=== PATIENT | female | born 1945 | race Caucasian/White ===

== ENCOUNTER 2016-07-06 14:11 | Inpatient (IN) | payer MEDICARE, OTHER ==
[~2016-07-06] VITALS: Ht 154.9 cm; Wt 101.8 kg
[~2016-07-06 14:11] MED LIST: ADVA100A INH; ATOR20TA15 PO; CENTTAB PO; COMMODE 3-IN-11 MIS; CPMMACHINE; ENOX40P SQ; NORC5TAB PO; PRIL20CA9 PO; WALKER WHEELS/F1 MIS
[2016-07-09] MEDS ORDERED: ASPI81TA11 PO (10:37)
[2016-07-09] MEDS ORDERED: FEXO1TAB97 PO (10:37)
[2016-07-25] MEDS ORDERED: fentaNYL CITRATE 250 MCG/5 ML AMP ONE ×2 (06:39→11:02)
[2016-07-25] MEDS ORDERED: ACETAMINOPHEN 1000 MG/100 ML VIAL IV ONE (06:39)
[2016-07-25] MEDS ORDERED: MIDAZOLAM HCL 2 MG/2 ML VIAL ONE (06:39)
--- NOTE | 2016-07-25 06:52 | HHI.DCPOC ---
Discharge Care Plan Diagnosis: (1) Primary localized osteoarthrosis, lower leg (2) Status post total knee replacement, left Your Health Problems Are: Difficulty with ADL Goals to Promote Your Health * To prevent worsening of your condition and complications * To maintain your health at the optimal level Directions to Meet Your Goals Take your medications as prescribed Follow your dietary instruction Follow activity as directed Keep your appointments as scheduled Take your immunizations and boosters as scheduled If your symptoms worsen call your PCP, if no PCP go to Urgent Care Center or Emergency Room Smoking is Dangerous to Your Health. Avoid second hand smoke Call the 24-hour hour crisis hotline for domestic abuse at Zachary Mckeon Jul 25, 2016 06:52
--- NOTE | 2016-07-25 06:53 | HHI.FF ---
Face to Face Verification Diagnosis: (1) Primary localized osteoarthrosis, lower leg (2) Status post total knee replacement, left Physical Therapy Gait training, Transfer training, bed to chair Knee: Total knee Left LE Weight Bearing: WB as tolerated Left LE Range of Motion: Active ROM Nursing Nursing: Jacob teaching, Dressing changes Dressing Changes: Daily dressing change I have seen patient [place] on 07/25/16. My clinical findings support the need for the requested home health care services because: Limited ability to care for self High risk of falls I certify that my clinical findings support that this patient is homebound because: Post-op weakness Unsteady gait/balance Zachary Mckeon Jul 25, 2016 06:53
[2016-07-25] MEDS ORDERED: COMMODE 3-IN-11 MIS (06:54)
[2016-07-25] MEDS ORDERED: WALKER WHEELS/F1 MIS (06:54)
[2016-07-25] MEDS ORDERED: CPMMACHINE (06:54)
[2016-07-25] MEDS ORDERED: DEXAMETHASONE SOD PHOS 20 MG/5 ML VIAL ONE (07:11)
[2016-07-25] MEDS ORDERED: VANCOMYCIN HCL 1000 MG VIAL ONE ×2 (07:17→07:40)
[2016-07-25] MEDS ORDERED: GENTAMICIN SULFATE 80 MG/2 ML VIAL ONE (07:17)
[2016-07-25] MEDS ORDERED: ceFAZolin 2 GM PREMIX 50 ML ONE (07:17)
[2016-07-25 07:28] VITALS: BP 158/83; PULSE 74; RESP 18; TEMP 97.8; O2SAT 98
[2016-07-25] MEDS ORDERED: SODIUM CHLOR 0.9% 250 ML INJ 250 ML ONE (07:40)
[2016-07-25] MEDS ORDERED: FAMOTIDINE 20 MG/2 ML VIAL ONE (08:26)
[2016-07-25] MEDS ORDERED: TRANEXAMIC ACID INJ 940 MG in SODIUM CHLORIDE 0.9% INJ 100 ML IV SCH ×2 (08:30→12:00)
[2016-07-25] MEDS ORDERED: POVIDONE IODINE 7.5% SCRUB 118 ML BOTTLE TOPICAL SCH (08:30)
[2016-07-25] MEDS ORDERED: VANCOMYCIN 1000 MG/NS 250 ML (for <70 kg) IV SCH ×2 (08:30)
[2016-07-25] MEDS ORDERED: ceFAZolin 2 GM PREMIX 50 ML IV SCH (08:30)
[2016-07-25] MEDS ORDERED: ROPIVACAINE PERI-ARTICULAR INJECTION. P-ARTICULR SCH ×5 (08:30)
[2016-07-25] MEDS ORDERED: BUPIVACAINE LIPOSOME PF 1.3% 20 ML VIAL ONE (09:41)
[2016-07-25] MEDS: SODIUM CHLOR 0.9% 1000 ML INJ 1,000 ML IV SCH ×3 (10:27→23:27)
[2016-07-25] MEDS ORDERED: SODIUM CHLORIDE 0.9% FLUSH 5 ML FLUSH IVF PRN (10:30)
[2016-07-25] MEDS ORDERED: Post-op Orders (for Pharmacy) MISC XX ONE (10:30)
[2016-07-25] MEDS ORDERED: MAGNESIUM HYDROXIDE SUSP 30 ML CUP PO PRN (10:30)
[2016-07-25] MEDS ORDERED: MORPHINE SULFATE 4 MG/ML INJ IV PUSH PRN (10:30)
[2016-07-25] MEDS ORDERED: ONDANSETRON HCL 4 MG/2 ML VIAL IVP PRN (10:30)
[2016-07-25] MEDS ORDERED: ALUMINUM/MAGNESIUM/SIMETH 30 ML CUP PO PRN (10:30)
[2016-07-25] MEDS ORDERED: ACETAMINOPHEN/HYDROcodone 325 MG/5 MG TAB PO PRN (10:30)
[2016-07-25] MEDS ORDERED: diphenhydrAMINE HCL 50 MG/ML VIAL IV PRN (10:30)
[2016-07-25] MEDS ORDERED: NALOXONE HCL 0.4 MG/ML AMP IV PRN (10:30)
[2016-07-25] MEDS ORDERED: BISACODYL 10 MG SUPP RECTAL PRN (10:30)
--- NOTE | 2016-07-25 10:30 | PD.OP ---
cc: Brice Crooks MD Operative Report Date of Surgery: Jul 25, 2016 Preoperative Diagnosis: Left knee severe osteoarthritis Postoperative Diagnosis: Same Procedure: Left total knee arthroplasty Anesthesia: Adductor canal block and general Surgeon: Brice Crooks Corporate Meeting Planner(s): HIRAM Juares The surgical procedure was assisted by my Advanced Registered Nurse Practitioner. My [employer] WEB[employer] COMMER[employer] DEVELOPER presence was necessary throughout this case for the manipulation and positioning of the surgical extremity. My [employer]ER[employer] DEVELOPER was assisting me throughout the duration of this procedure. The skill set of an Advance Registered Nurse Practitioner was medically necessary to complete this procedure. During the surgical case, the surgical coordinator was working at the back table and the Advance Registered Nurse Practitioner was directly assisting me. Operation and Findings: IMPLANTS: DePuy Attune: Patella: size 32. Femur, posterior stabilized size 6 narrow. Tibia, rotating platform size 5. Tibial insert, rotating platform, posterior stabilized size 6 mm thickness. ESTIMATED BLOOD LOSS: 150 cc TOURNIQUET TIME: 45 minutes at 250 mmHg pressure. JUSTIFICATION FOR PROCEDURE: The patient has end-stage osteoarthritis to the knee. There is an attached conservative measures pathway form in the chart that describes the nonoperative measures that were undertaken prior to consideration of surgical management. The patient understood the risks and benefits of surgical management. See my office notes for further details PROCEDURE: The patient was brought back to the operative theatre. Adequate anesthesia was obtained. The patient received intravenous vancomycin and Ancef. The lower extremity was prepped and draped in the usual sterile fashion.The leg was exsanguinated, the tourniquet was raised. A standard anterior incision was performed followed by medial parapatellar arthrotomy was performed. End-stage arthritis was identified. Osteotomy of the patella was performed. We drilled holes for the patella. We trialed the patella component. We placed an intramedullary guide into the distal femur. We ultimately resected 13 mm off of the distal femur in 5 degrees of valgus. The remnants of the ACL and PCL were resected. Osteotomy of the proximal tibia was performed, resecting 5 mm off of the medial side. This was done with 3 degrees of posterior slope using an extramedullary guide. The distal end of the guide was placed in the mid aspect of the ankle. The femur was sized, and four chamfer cuts were completed in 3 of external rotation. We then cut the central box in the distal femur to replace the PCL. We resected the remnants of the menisci and removed osteophytes off of the femur and tibia. We then trialed the knee. We punched the tibia for the keel, and then used standard technique to cement in components. Excess cement was removed. We trialed the knee again and the final polyethylene thickness was chosen to provide extension to 0 degrees, and flexion of 140 degrees to gravity. The ligaments were appropriately balanced. Lateral release was necessary to obtain excellent patellofemoral tracking. The tourniquet was released and adequate hemostasis was obtained. An intra- articular injection of a ropivacaine cocktail was injected. The posterior knee was inspected for excess cement, which was removed. The final polyethylene was put into position after thorough irrigation. We then closed deep fascia with a #2 Stratafix followed by skin with 2-0 Vicryl followed by aleida. Postop plan is to weight-bear as tolerated. DVT prophylaxis will be performed with Bladimir, ANNETTA landin, early mobilization, and Lovenox followed by aspirin. Brice Crooks MD Jul 25, 2016 10:30
[2016-07-25] MEDS ORDERED: ASPI325T PO (10:32)
[2016-07-25] MEDS ORDERED: ENOX40P SQ (10:32)
[2016-07-25] MEDS ORDERED: NORC5TAB PO (10:32)
[2016-07-25] MEDS ORDERED: DO NOT ADM ANY ANTICOAGULANT DRUGS PRN (10:55)
[2016-07-25] MEDS ORDERED: *morphine SULFATE 8 MG/ML PERIprocedure ONLY ONE ×2 (11:08→13:32)
[2016-07-25] MEDS ORDERED: NEOSTIGMINE 3 MG/3 ML SYR IV ONE (12:00)
[2016-07-25] MEDS ORDERED: PROPOFOL 200 MG/20 ML AMP IV ONE (12:00)
[2016-07-25] MEDS ORDERED: ONDANSETRON HCL 4 MG/2 ML VIAL IV PUSH ONE (12:00)
[2016-07-25] MEDS ORDERED: LACTATED RINGER'S 1000 ML INJ 1,000 ML IV ONE (12:00)
--- NOTE | 2016-07-25 12:22 | RADRPT ---
EXAM DATE/TIME: 07/25/2016 12:59 [facility] COMPARISON: No previous studies available for comparison. INDICATIONS : Post op knee surgery MEDICAL HISTORY : None. SURGICAL HISTORY : None. ENCOUNTER: Initial ACUITY: 1 day PAIN SCORE: Non-responsive. LOCATION: Left knee FINDINGS: 2 views of the knee demonstrates a total knee arthroplasty with near-anatomic alignment of the osseou s structures. Some deep soft tissue gas is present and are multiple skin aleida. CONCLUSION: Expected postsurgical finding status post total knee arthroplasty. Isiah Ludwig MD on July 25, 2016 at 12:20 Board Certified Radiologist. This report was verified electronically.
[2016-07-25 13:51] VITALS: BP 156/72; PULSE 75; RESP 18; TEMP 96.1; O2SAT 96
[2016-07-25 16:34] VITALS: BP 136/62; PULSE 75; RESP 18; TEMP 96.6; O2SAT 98
--- NOTE | 2016-07-25 18:27 | PD.CONS ---
[facility] Requested By Reason for Consult medical management Primary Care Physician David Guadarrama M.D. Diagnoses: History of Present Illness patient is a very pleasant 71 years old female.admitted under Dr. robledo's service and underwent left knee surgery/replacement. Patient had right knee surgery in 2016 and doing quite well however for the last 6 monthas has been having progressive pain of the left knee with difficulty ambulation. Persistence of pain prompted admission for surgery. Post op day now- very interactive, motivated with therapy, no pain complains. Review of Systems Constitutional: DENIES: Diaphoretic episodes, Fatigue, Fever, Weight gain, Weight loss, Chills, Dizziness, Change in appetite, Night Sweats Endocrine: DENIES: Abnorml menstrual pattern, Heat/cold intolerance, Polydipsia , Polyuria, Polyphagia Eyes: DENIES: Blurred vision, Diplopia, Eye inflammation, Eye pain, Vision loss , Photosensitivity, Double Vision Ears, nose, mouth, throat: DENIES: Tinnitus, Hearing loss, Vertigo, Nasal discharge, Oral lesions, Throat pain, Hoarseness, Ear Pain, Running Nose, Epistaxis, Sinus Pain, Toothache, Odynophagia Respiratory: DENIES: Apneas, Cough, Snoring, Wheezing, Hemoptysis, Sputum production, Shortness of breath Cardiovascular: DENIES: Chest pain, Palpitations, Syncope, Dyspnea on Exertion , PND, Lower Extremity Edema, Orthopnea, Claudication Gastrointestinal: DENIES: Abdominal pain, Black stools, Bloody stools, Constipation, Diarrhea, Nausea, Vomiting, Difficulty Swallowing, Anorexia Genitourinary: DENIES: Abnormal vaginal bleeding, Dysmenorrhea, Dyspareunia, Sexual dysfunction, Urinary frequency, Urinary incontinence, Urgency, Hematuria , Dysuria, Nocturia, Vaginal discharge Musculoskeletal: COMPLAINS OF: Joint pain (knee) Integumentary: DENIES: Abnormal pigmentation, Pruritus, Rash, Nail changes, Breast masses, Breast skin changes, Nipple discharge Hematologic/lymphatic: DENIES: Bruising, Lymphadenopathy Immunologic/allergic: DENIES: Eczema, Urticaria Neurologic: COMPLAINS OF: Abnormal gait (lately having difficulty), DENIES: Headache, Localized weakness, Paresthesias, Seizures, Speech Problems, Tremor, Poor Balance Psychiatric: DENIES: Anxiety, Confusion, Mood changes, Depression, Hallucinations, Agitation, Suicidal Ideation, Homicidal Ideation, Delusions Past Family Social History Allergies: Coded Allergies: Celery (Verified Allergy, Intermediate, itching, 07/25/16) Sulfa (Verified Allergy, Intermediate, swelling, 07/25/16) Penicillin (Verified Allergy, Mild, nausea, 07/25/16) Uncoded Allergies: APPLE SKINS, (Allergy, Intermediate, itching, 01/30/16) CARROTS (Allergy, Intermediate, itching, 01/30/16) CASHEW NUTS (Allergy, Intermediate, nausea, 01/30/16) Past Medical History Hyperreactive airway disease GERD hyoperlipidemia Past Surgical History right knee surgery Reported Medications Advair Allopurinol Omeprazole Atorvastatin MVI Active Ordered Medications see EMR Family History non contributory Social History non smoker, non alcohol drinker Physical Exam Vital Signs Vital Signs Date Time Temp Pulse Resp B/P Pulse Ox O2 Delivery O2 Flow Rate FiO2 07/25/16 16:34 96.6 75 18 136/62 98 07/25/16 13:51 96.1 75 18 156/72 96 07/25/16 13:30 97.3 76 16 153/76 97 Nasal Cannula 3 07/25/16 13:00 84 16 150/81 97 Nasal Cannula 3 07/25/16 12:30 77 15 153/78 97 Nasal Cannula 3 07/25/16 12:00 76 15 150/74 95 Nasal Cannula 3 07/25/16 11:45 74 17 154/74 95 Nasal Cannula 3 07/25/16 11:30 80 17 154/78 95 Nasal Cannula 3 07/25/16 11:15 79 15 141/65 93 Nasal Cannula 3 07/25/16 11:00 80 15 149/74 93 Nasal Cannula 3 07/25/16 10:56 97.7 91 15 148/78 92 Nasal Cannula 3 07/25/16 07:28 97.8 74 18 158/83 98 Physical Exam GENERAL: This is a well-nourished, well-developed patient, in no apparent distress. SKIN: No rashes, ecchymoses or lesions. Cool and dry. HEAD: Atraumatic. Normocephalic. No temporal or scalp tenderness. EYES: Pupils equal round and reactive. Extraocular motions intact. No scleral icterus. No injection or drainage. ENT: Nose without bleeding, . Airway patent. NECK: Trachea midline. No JVD or lymphadenopathy. Supple, nontender, no meningeal signs. CARDIOVASCULAR: Regular rate and rhythm without murmurs, gallops, or rubs. RESPIRATORY: Clear to auscultation. Breath sounds equal bilaterally. No wheezes , rales, or rhonchi. GASTROINTESTINAL: Abdomen soft, non-tender, nondistended. No hepato-splenomegaly , or palpable masses. No guarding. MUSCULOSKELETAL: Extremities without clubbing, cyanosis, or edema. Lerft knee dressing in place No calf tenderness. Negative Homans sign bilaterally. NEUROLOGICAL: Awake and alert. Cranial nerves II through XII intact. Motor and sensory grossly within normal limits. motor grossly intact. speech normal Laboratory Laboratory Tests Test 07/25/16 07:10 Blood Type O POSITIVE Antibody Screen NEGATIVE Imaging Last Impressions Knee X-Ray 07/25/16 1027 Signed Impressions: Service Date/Time: Monday, July 25, 2016 12:59 - CONCLUSION: Expected postsurgical finding status post total knee arthroplasty. Isiah Ludwig MD Assessment and Plan Assessment and Plan 71 years old female S/P left total knee replacement -ortho ff. PT daily History of hyperlipidemia= on statins History of HAD- continue on Advair History of GERD- continue PPI Lovenox for DVT prophylaxis DC planning- home with home health. DME complete per patient michellek jenna for this consult- willff patient during this hospital stay Vitaly Ivan MD Jul 25, 2016 18:26
[2016-07-25 19:26] VITALS: BP 126/60; PULSE 70; RESP 17; TEMP 96.2; O2SAT 95
[2016-07-25] MEDS: ACETAMINOPHEN/HYDROcodone 325 MG/5 MG TAB PO PRN (20:13)
[2016-07-25] MEDS: SODIUM CHLORIDE 0.9% FLUSH 5 ML FLUSH IVF SCH (20:14)
[2016-07-25] MEDS: BUDESONIDE-FORMOTEROL 80/4.5 MCG INHALER INH SCH (20:15)
[2016-07-25] MEDS: LORATADINE/PSEUDOEPHEDRINE 5 MG/120 MG TAB PO SCH (20:15)
[2016-07-25] MEDS ORDERED: ZOLPIDEM TARTRATE 5 MG TAB PO PRN (21:00)
[2016-07-25] MEDS ORDERED: ATORVASTATIN 20 MG TAB PO SCH (21:00)
[2016-07-26 00:05] VITALS: BP 108/68; PULSE 78; RESP 17; TEMP 96.9; O2SAT 9
[2016-07-26 04:15] VITALS: BP 115/57; PULSE 79; RESP 17; TEMP 97.4; O2SAT 93
[2016-07-26 06:23] LABS: HEMATOCRIT 33.3 % (35.0-46.0); MEAN CORPUSCULAR HEMOGLOBIN 29.9 PG (27.0-34.0); MEAN CORPUSCULAR HGB CONC 33.6 % (32.0-36.0); PLATELET COUNT 275 TH/MM3 (150-450); RED BLOOD COUNT 3.74 MIL/MM3 (4.00-5.30); RED CELL DISTRIBUTION WIDTH 13.7 % (11.6-17.2); REVIEW FLAG FINAL; WHITE BLOOD COUNT 13.6 TH/MM3 (4.0-11.0)
[2016-07-26] MEDS ORDERED: DEXAMETHASONE SOD PHOS 20 MG/5 ML VIAL IV ONE (07:45)
[2016-07-26 08:10] VITALS: BP 122/57; PULSE 78; RESP 18; TEMP 97.9; O2SAT 96
[2016-07-26] MEDS ORDERED: PANTOPRAZOLE SOD 20 MG DELAYED RELEASE TAB PO SCH (09:00)
[2016-07-26] MEDS: SODIUM CHLORIDE 0.9% FLUSH 5 ML FLUSH IVF SCH (09:00)
[2016-07-26] MEDS: BUDESONIDE-FORMOTEROL 80/4.5 MCG INHALER INH SCH (09:00)
[2016-07-26] MEDS: LORATADINE/PSEUDOEPHEDRINE 5 MG/120 MG TAB PO SCH (09:00)
[2016-07-26] MEDS: ACETAMINOPHEN/HYDROcodone 325 MG/5 MG TAB PO PRN (09:27)
[2016-07-26] MEDS ORDERED: ENOXAPARIN SODIUM 40 MG/0.4 ML SYRINGE SQ SCH (10:00)
[2016-07-26 11:44] VITALS: BP 129/76; PULSE 70; RESP 18; TEMP 98; O2SAT 98
--- NOTE | 2016-07-26 11:54 | PD.ORT.PN ---
Subjective Post Op Day #: 1 Subjective Remarks Patient resting in bed with minimal pain to the left knee. Patient ambulatory and voiding. Patient requesting to go home with home health today. Objective Vitals Vital Signs Date Time Temp Pulse Resp B/P Pulse Ox O2 Delivery O2 Flow Rate FiO2 07/26/16 11:44 98.0 70 18 129/76 98 07/26/16 08:10 97.9 78 18 122/57 96 07/26/16 04:15 97.4 79 17 115/57 93 07/26/16 00:05 96.9 78 17 108/68 9 07/25/16 19:26 96.2 70 17 126/60 95 07/25/16 16:34 96.6 75 18 136/62 98 07/25/16 13:51 96.1 75 18 156/72 96 07/25/16 13:30 97.3 76 16 153/76 97 Nasal Cannula 3 07/25/16 13:00 84 16 150/81 97 Nasal Cannula 3 07/25/16 12:30 77 15 153/78 97 Nasal Cannula 3 07/25/16 12:00 76 15 150/74 95 Nasal Cannula 3 I/O 07/25/16 07/25/16 07/25/16 07/26/16 07/26/16 07/26/16 07:00 15:00 23:00 07:00 15:00 23:00 Intake Total 2000 ml 1180 ml 1348 ml Output Total 950 ml 1000 ml 600 ml Balance 1050 ml 180 ml 748 ml Intake Oral 480 ml 480 ml IV Total 300 ml 700 ml 868 ml Other 1700 ml Output Urine Total 700 ml 1000 ml 600 ml Estimated Blood Loss 250 ml # Bowel Movements 0 Result Diagram: 07/26/16 0536 Procedures Left TKA Objective Remarks The patient's dressing was changed with no drainage. Incision is well approximated with surgical clips intact. No redness or s/s of infection. Calf is soft and nontender. 2+ pedal pulse. EHL/TA/G intact. Minimal swelling. + SILT Assessment & Plan Ortho Post Op Day #: 1 Problem List: Assessment and Plan POD #1: Left TKA 1. WBAT LLE 2. Lovenox for DVT prophylaxis 3. Ice to the left knee PRN 4. Stable for discharge home with home health today. Zachary Mckeon Jul 26, 2016 11:53
[2016-07-26] MEDS ORDERED: MULTIVITAMINS/MINERALS THERAPEUTIC TAB PO SCH (21:00)
[2016-07-26] MEDS ORDERED: DOCUSATE SODIUM 100 MG CAP PO SCH (21:00)
--- NOTE | 2016-07-29 13:41 | HHI.DS ---
Discharge Summary Admission Date Jul 25, 2016 at 05:28 Discharge Date: Jul 26, 2016 Admitting Diagnosis Primary localized OA, lower leg Status post total knee replacement, left Diagnosis: (1) Primary localized osteoarthrosis, lower leg (2) Status post total knee replacement, left Procedures Left TKA Brief History This is a 71 year old female patient with severe OA of the left knee CBC/BMP: 07/26/16 0536 PE at Discharge The patient's dressing was changed with no drainage. Incision is well approximated with surgical clips intact. No redness or s/s of infection. Calf is soft and nontender. 2+ pedal pulse. EHL/TA/G intact. Minimal swelling. + SILT Hospital Course The patient was admitted to the hospital for severe OA of the left knee. The patient underwent a left TKA with no complications. The patient was WBAT post op. The patient had a normal diet and was placed on lovenox followed by ASA for DVT prophylaxis. The patient was discharged home with home health and will f/u with Dr. Crooks in 1-2 weeks. Pt Condition on Discharge: Stable Discharge Disposition: Disch w/ Home Health Serv Discharge Instructions Diet Instructions: As Tolerated, No Restrictions Activities You Can Perform: Weight Bearing as Neida Activities to Avoid: Strenuous Activity Follow up Referrals: Orthopedics with Brice Crooks MD New Medications: Aspirin (Aspirin) 325 Mg Tab 325 MG PO DAILY Start Aspirin after Lovenox is completed. Prevent Blood Clot # 30 Ref 0 TAB Commode 3-in-1 (Commode 3-in-1) 1 Mis Mis 1 EA .ROUTE DIRECTED #1 Ref 0 EA CPM-Continuous Passive Motion Machine (CPM-Continuous Passive Motion Machine) 1 Ea Device 1 EA .ROUTE DIRECTED #1 Ref 0 EA Enoxaparin Inj (Lovenox Inj) 40 Mg/0.4 Ml Syr 40 MG SQ DAILY Start Aspirin after Lovenox is completed. Blood Clot Prevention # 10 Ref 0 SYRINGE Hydrocodone-Acetaminophen ([place]) 5-325 mg Tab 1-2 TAB PO Q4H PRN PAIN #60 Ref 0 TAB Walker with Front Wheels (Walker with Front Wheels) 1 Mis Mis 1 EA .ROUTE DIRECTED #1 Ref 0 EA Continued Medications: Atorvastatin (Atorvastatin) 20 Mg Tab 20 MG PO HS Cholesterol Management #30 Ref 0 TAB Fexofenadine-Pseudoephedrine ER 24 HR (Alysia-D 24 Hour Allergy) 180-240 Saeid 1 TAB PO DAILY Allergy Management #30 Ref 0 TAB Fluticasone-Salmeterol Inh (Advair Diskus Inh) 100-50 Mcg/Blist Aer 1 PUFF INH BID Rinse mouth after use. #1 Ref 0 INHALER Multiple Vitamins W/ Minerals (Centrum Silver) 1 Tab 1 TAB PO DAILY Nutritional Supplement Ref 0 TAB Omeprazole (Prilosec) 20 Mg Cap 20 MG PO DAILY #30 Ref 0 CAP Discontinued Medications: Aspirin DR (Aspirin EC) 81 Mg Tabdr 81 MG PO DAILY Ref 0 TAB Enoxaparin Inj (Lovenox Inj) 40 Mg/0.4 Ml Syr 40 MG SQ DAILY Start Aspirin after Lovenox is completed. Blood Clot Prevention # 8 Ref 0 SYRINGE Hydrocodone-Acetaminophen ([place]) 5-325 mg Tab 1-2 TAB PO Q4H PRN PAIN #60 Ref 0 TAB Zachary Mckeon Jul 29, 2016 13:41
== END 2016-07-26 13:08 | disposition home health service (06) | DRG 470 ==
LOC: HSDI 07-25 05:28 → N06A 07-25 13:47
PROVIDERS: ADMIT Orthopaedic Surgery; ATTEND Orthopaedic Surgery
PROC: 3E0T3CZ (ICD-10-PCS; 2016-07-25)
PROC: 0SRD0J9 Replacement of Left Knee Joint with Synthetic Substitute, Cemented, Open Approach (ICD-10-PCS; principal; 2016-07-25 08:28)
DX: M17.12 Unilateral primary osteoarthritis, left knee (principal); E78.5 Hyperlipidemia, unspecified; K21.9 Gastro-esophageal reflux disease without esophagitis; Z91.018 Allergy to other foods; Z88.0 Allergy status to penicillin; Z88.2 Allergy status to sulfonamides
CPT/HCPCS: 73560; 85027; 86850; 86900; 86901; 94150; C1776; C9290; J0131; J0171; J0690; J0735; J1100; J1580; J1650; J1885; J2250; J2270; J2405; J2710; J2795; J3010; J3370; J7030; J7050; J7120; L1830

== ENCOUNTER → 2016-07-09 | Outpatient (CLI) | payer MEDICARE, OTHER ==
[~2016-07-09] MED LIST changes: +ALLE60TA PO; +ASPI325T PO; +ASPI81TA11 PO; +FEXO1TAB97 PO
[2016-07-09 11:15] LABS: AUTOMATED NEUTROPHIL # 3.9 TH/MM3 (1.8-7.7); BASOPHIL # 0.2 TH/MM3 (0-0.2); BASOPHIL % 2.5 % (0.0-2.0); EOSINOPHIL # 0.1 TH/MM3 (0-0.4); EOSINOPHIL % 1.5 % (0.0-4.0); HEMATOCRIT 43.4 % (35.0-46.0); HEMO FLAGS DIFF FINAL; LYMPH % 32.4 % (9.0-44.0); LYMPHOCYTE # 2.3 TH/MM3 (1.0-4.8); MEAN CELL VOLUME 89.6 FL (80.0-100.0); MEAN CORPUSCULAR HEMOGLOBIN 29.5 PG (27.0-34.0); MONO % 8.6 % (0.0-8.0); PLATELET COUNT 322 TH/MM3 (150-450); RED BLOOD COUNT 4.85 MIL/MM3 (4.00-5.30); RED CELL DISTRIBUTION WIDTH 13.7 % (11.6-17.2); WHITE BLOOD COUNT 7.1 TH/MM3 (4.0-11.0)
[2016-07-09 11:20] LABS: APTT (PATIENT) 26.8 SEC (24.3-30.1); PROTHROMBIN TIME - PATIENT 10.9 SEC (9.8-11.6)
[2016-07-09 11:31] LABS: BLOOD, URINE NEG (NEG); GLUCOSE,URINE NEG (NEG); HYALINE CAST, URINE 1 /lpf (RARE); KETONE, URINE NEG (NEG); MUCUS URINE FEW /lpf (OCC); NITRITE,URINE NEG (NEG); SQUAMOUS EPITHELIAL CELL URINE 2 /hpf (0-5); URINE COLOR YELLOW (YELLW/STRAW)
--- NOTE | 2016-07-09 11:36 | RADRPT ---
EXAM DATE/TIME: 07/09/2016 10:59 [facility] COMPARISON: CHEST PA & LAT, January 30, 2016, 11:11. INDICATIONS : Evaluate for pneumonia, pneumothorax or commuicable disease. Pre-op for left total knee replacement 0 07/25/16 MEDICAL HISTORY : None. SURGICAL HISTORY : None. ENCOUNTER: Initial ACUITY: 1 day PAIN SCORE: 0/10 LOCATION: Bilateral chest FINDINGS: PA and lateral views of the chest demonstrate the lungs to be symmetrically aerated without evidence of mass, infiltrate or effusion. The cardiomediastinal contours are unremarkable. Osseous structure s are intact. CONCLUSION: No acute disease. Sridhar Vergara MD FACR on July 09, 2016 at 11:33 Board Certified Radiologist. This report was verified electronically.
[2016-07-09 11:41] LABS: ALKALINE PHOSPHATASE 73 U/L (45-117); ALT (GPT) 22 U/L (10-53); ANION GAP 8 MEQ/L (5-15); AST (GOT) 17 U/L (15-37); BICARBONATE 28.8 MEQ/L (21.0-32.0); BLOOD UREA NITROGEN 16 MG/DL (7-18); CHLORIDE 105 MEQ/L (98-107); GLOMERULAR FILTRATION RATE 66 ML/MIN (>89); GLUCOSE,FASTING 98 MG/DL (74-99); POTASSIUM 4.3 MEQ/L (3.5-5.1); SODIUM (NA) 142 MEQ/L (136-145); TOTAL BILIRUBIN ADULT 1.3 MG/DL (0.2-1.0)
[2016-07-09 11:43] LABS: WESTERGREN SEDIMENTATION RATE 14 mm/hr (0-30)
[2016-07-09 11:44] LABS: COMMENT (UR) CULT NOT INDICATED; CULTURE IF INDICATED CULT NOT INDICATED
== END ==
LOC: CPRE 10:01
PROVIDERS: ATTEND Orthopaedic Surgery
DX: Z01.811 Encounter for preprocedural respiratory examination (principal); Z01.812 Encounter for preprocedural laboratory examination; M79.609 Pain in unspecified limb; M25.50 Pain in unspecified joint; M17.12 Unilateral primary osteoarthritis, left knee
CPT/HCPCS: 36415; 71020; 80053; 81001; 85025; 85610; 85652; 85730